=== PATIENT | female | born 2000 | race Two or more races ===

== ENCOUNTER 2019-04-19 19:31 | Emergency (ER) | payer OTHER ==
[2019-04-19] MEDS ORDERED: NORMAL SALINE 1000 ML 1,000 ML IV ONE (20:21)
[2019-04-19] MEDS ORDERED: ACETAMINOPHEN 325 MG TABLET PO ONE (20:21)
--- NOTE | 2019-04-19 20:23 | ER Document Report ---
ED Medical Screen (RME) - General Chief Complaint: Flu Symptoms Stated Complaint: FEVER Time Seen by Provider: 04/19/19 20:17 Notes: HPI: 18-year-old female who is 29 weeks presenting for evaluation of cough and fever over the last 4 days. Patient states she had fever up to 102 today. She denies abdominal pain or dysuria. Does report some decreased appetite over the last 1 to 2 days. Complains of chest pain with coughing. I have greeted and performed a rapid initial assessment of this patient. A comprehensive ED assessment and evaluation of the patient, analysis of test results and completion of the medical decision making process will be conducted by additional ED providers PHYSICAL EXAMINATION: GENERAL: Well-appearing, well-nourished and in mild acute distress. HEAD: Atraumatic, normocephalic. EYES: sclera anicteric, conjunctiva are normal. ENT: Moist mucous membranes. Very mild pharyngeal erythema NECK: Normal range of motion LUNGS: Normal work of breathing, clear to auscultation HEART: 2+ radial pulses bilaterally, tachycardic ABD: limited by positioning for exam in triage. EXTREMITIES: no pitting or edema. No cyanosis. NEUROLOGICAL: No focal neurological deficits. Moves all extremities spontaneous ly and on command. PSYCH: Normal mood, normal affect. SKIN: Warm, Dry, normal turgor, no rashes or lesions noted. TRAVEL OUTSIDE OF THE [place] IN LAST 30 DAYS: No - Related Data Allergies/Adverse Reactions: No Known Allergies Allergy (Unverified 04/19/19 20:15) Physical Exam - Vital signs Vitals: Temp Pulse Resp BP Pulse Ox 100.0 F 134 H 18 102/62 100 04/19/19 19:51 04/19/19 19:51 04/19/19 19:51 04/19/19 19:51 04/19/19 19:51 Course - Vital Signs Vital signs: Temp Pulse Resp BP Pulse Ox 100.0 F 134 H 18 102/62 100 04/19/19 19:51 04/19/19 19:51 04/19/19 19:51 04/19/19 19:51 04/19/19 19:51
--- NOTE | 2019-04-19 20:59 | RADIOLOGY REPORT (SQ) ---
EXAM DESCRIPTION: X-RAY CHEST- TWO VIEWS CLINICAL HISTORY: Fever and cough COMPARISON: None available TECHNIQUE: 2 views of the chest FINDINGS: There are no discrete air space infiltrates, pneumothoraces or pleural effusions. The pulmonary vascularity is normal. There is nonspecific elevation of the right hemidiaphragm. The cardiomediastinal silhouette is normal in size. No suspicious lytic or blastic osseous lesions are identified. IMPRESSION: There are no acute lung parenchymal findings.
[2019-04-19 21:03] LABS: ABSOLUTE EOSINOPHILS # (AUTO) 0.1 10^3/uL (0.0-0.6); ABSOLUTE LYMPHOCYTES (AUTO) 0.7 10^3/uL (0.5-4.7); ABSOLUTE MONOCYTES (AUTO) 0.3 10^3/uL (0.1-1.4); ABSOLUTE NEUT (AUTO) 5.8 10^3/uL (1.7-8.2); BASOPHILS % (AUTO) 0.2 % (0-2); HEMATOCRIT 34.8 % (36.0-47.0); HEMOGLOBIN 11.8 g/dL (12.0-15.5); LYMPHOCYTES % (AUTO) 9.6 % (13-45); MEAN CORPUSCULAR HEMOGLOBIN 30.6 pg (27.0-33.4); MEAN CORPUSCULAR HGB CONC 33.8 g/dL (32.0-36.0); MEAN CORPUSCULAR VOLUME 91 fl (80-97); MONOCYTES % (AUTO) 4.1 % (3-13); PLATELET COUNT 234 10^3/uL (150-450); RED BLOOD COUNT 3.84 10^6/uL (3.72-5.28); RED CELL DISTRIBUTION WIDTH 13.7 % (11.5-14.0); SEGMENTED NEUTROPHILS % (AUTO) 85.1 % (42-78); TOTAL CELLS COUNTED % (AUTO) 100 %; WHITE BLOOD COUNT 6.8 10^3/uL (4.0-10.5)
[2019-04-19 21:09] LABS: APPEARANCE,URINE CLEAR; BILIRUBIN,URINE NEGATIVE (NEGATIVE); COLOR,URINE YELLOW; GLUCOSE, URINE NEGATIVE (NEGATIVE); KETONES,URINE NEGATIVE (NEGATIVE); LEUKOCYTE ESTERASE,URINE NEGATIVE (NEGATIVE); NITRITE,URINE NEGATIVE (NEGATIVE); PROTEIN,URINE NEGATIVE (NEGATIVE); URINE SPECIFIC GRAVITY 1.006; UROBILINOGEN,URINE NEGATIVE mg/dL (<2.0)
[2019-04-19 21:15] LABS: ALKALINE PHOSPHATASE 125 U/L (38-126); ANION GAP 12 (5-19); ASPARTATE AMINO TRANSFERASE 34 U/L (14-36); BILIRUBIN,DIRECT 0.3 mg/dL (0.0-0.4); BILIRUBIN,TOTAL 0.3 mg/dL (0.2-1.3); BLOOD UREA NITROGEN 4 mg/dL (7-20); CALCIUM 9.1 mg/dL (8.4-10.2); CARBON DIOXIDE 22 mmol/L (22-30); CHLORIDE 100 mmol/L (98-107); GLUCOSE 88 mg/dL (75-110); POTASSIUM 3.7 mmol/L (3.6-5.0); TOTAL PROTEIN 7.5 g/dL (6.3-8.2)
[2019-04-19 21:17] LABS: A TYPE INFLUENZA AG NEGATIVE (NEGATIVE); B INFLUENZA AG POSITIVE (NEGATIVE)
[2019-04-19] MEDS ORDERED: OSELTAMIVIR PHOSPHATE 75 MG CAPSULE PO ONE (23:00)
--- NOTE | 2019-04-19 23:40 | ER Document Report ---
Entered by TIN HANDLEY SCRIBE 04/19/19 1907 Acting as scribe for:CLARENCE POP IV, MD ED Flu Like - General Chief Complaint: Flu Symptoms Stated Complaint: FEVER Time Seen by Provider: 04/19/19 20:17 Primary Care Provider: DEVIN MARTINO MD [Primary Care Provider] - Follow up as needed Mode of Arrival: Ambulatory Information source: Patient Notes: This 18 year old female patient G2, P1, approximately x29 weeks presents to the ED today with complaints of flu-like symptoms that began around 1600 x3 days ago. Patient states that she was at work when she felt like she was having an anxiety attack that day, so she went home early. Patient reports cough, fever, chest pain with cough, body aches, chills, sore throat, and a poor appetite for the past x1-2 days. Patient notes that her fever was up to 102 and that her last dose of Tylenol was at 1400 today. Patient denies abdominal pain, dysuria, nausea, vomiting, or diarrhea. TRAVEL OUTSIDE OF THE [place] IN LAST 30 DAYS: No - Related Data Allergies/Adverse Reactions: No Known Allergies Allergy (Unverified 04/19/19 20:15) Past Medical History - Social History Smoking Status: Never Smoker Family History: Reviewed & Not Pertinent Patient has suicidal ideation: No Patient has homicidal ideation: No Review of Systems - Review of Systems Constitutional: See HPI, Chills, Fever EENT: See HPI, Throat pain Cardiovascular: See HPI, Chest pain - reproducible with cough Respiratory: See HPI, Cough Gastrointestinal: See HPI, Poor appetite. denies: Abdominal pain, Diarrhea, Nausea, Vomiting Genitourinary: See HPI. denies: Dysuria Female Genitourinary: See HPI, Last menstrual period - 09/25/2018, - x29 weeks Musculoskeletal: See HPI, Other - Body aches Skin: No symptoms reported Hematologic/Lymphatic: No symptoms reported Neurological/Psychological: No symptoms reported -: Yes All other systems reviewed and negative Physical Exam - Vital signs Vitals: Temp Pulse Resp BP Pulse Ox 100.0 F 134 H 18 102/62 100 04/19/19 19:51 04/19/19 19:51 04/19/19 19:51 04/19/19 19:51 04/19/19 19:51 - General General appearance: Alert - HEENT Head: Normocephalic, Atraumatic Eyes: Normal Pupils: PERRL - Respiratory Respiratory status: No respiratory distress Chest status: Nontender Breath sounds: Normal Chest palpation: Normal - Cardiovascular Rhythm: Regular Heart sounds: Normal auscultation Murmur: No Friction rub: No Gallop: None auscultated - Abdominal Inspection: Other - Uterus size appropriate with . Distension: No distension Bowel sounds: Normal Tenderness: Nontender - Abdomen soft Organomegaly: No organomegaly - Back Back: Normal, Nontender - Extremities General upper extremity: Normal inspection General lower extremity: Normal inspection - Neurological Neuro grossly intact: Yes - Psychological Associated symptoms: Normal affect, Normal mood - Skin Skin Temperature: Warm Skin Moisture: Dry Skin Color: Normal Course - Re-evaluation Re-evalutation: 04/19/19 22:59 Results of ED MSE discussed with patient. All questions were answered prior to discharge. Emergency signs and symptoms, reasons to return to the emergency department discussed with patient. - Vital Signs Vital signs: Temp Pulse Resp BP Pulse Ox 98.3 F 120 H 16 105/55 L 100 04/20/19 00:34 04/20/19 00:34 04/20/19 00:34 04/20/19 00:34 04/20/19 00:34 - Laboratory Result Diagrams: 04/19/19 20:50 04/19/19 20:50 Laboratory results interpreted by me: 04/19/19 04/19/19 20:50 20:50 Hgb 11.8 L Hct 34.8 L Lymph % (Auto) 9.6 L Seg Neutrophils % 85.1 H Sodium 133.5 L BUN 4 L Creatinine 0.47 L Discharge - Discharge Clinical Impression: Influenza B Condition: Good Disposition: HOME, SELF-CARE Instructions: Influenza ([facility]) [id number] Additional Instructions: Return to the Emergency Department without delay if any worse. HOME CARE INSTRUCTIONS & INFORMATION: Thank you for choosing us for your medical needs. We hope you're satisfied with the care you received. After you leave, you must properly care for your problem and, at the same time, observe its progress. Any condition can change. Some illnesses can change rapidly over hours or days. If your condition worsens, return to the Emergency Department or see your physician promptly. ABOUT YOUR X-RAYS AND EKG'S: If you had an EKG or X-rays taken, they have been read by the Emergency Physician. The X-rays and EKG's will also be read by a Radiologist or Aviation Electronics Technician within 24 hours. If discrepancies are noted, you will be notified by telephone. Please be certain the ED has a correct telephone number & address where you can be reached. Also, realize that some fractures or abnormalities do not show up on initial X-rays. If your symptoms continue, see your physician. ABOUT YOUR LABORATORY TEST: If you had laboratory tests, the results have been reviewed by the Emergency Physician. Some test results (for example cultures) may not be available for several days. You will be contacted if any test result shows you need additional treatment. Please be certain the ED has a correct telephone number and address where you can be reached. ABOUT YOUR MEDICATIONS: You will receive instructions on how to take your medicine on the prescription label you receive. Additional information may be provided by the Pharmacy. If you have questions afterwards, call the ED for clarification or further instructions. Some prescribed medications may cause drowsiness. Do not perform tasks such as driving a car or operating machinery without consulting your Pharmacist. If you feel you need a refill of pain medication, your condition will need re-evaluation. Please do not call for a refill of any medication. ABOUT YOUR SIGNATURE: Signature of this document acknowledges to followin. Understanding that you received emergency treatment and that you may be released before al medical problems are known or treated. Please be certain the ED has a correct phone number & address where you can be reached. 2. Acknowledgement that you will arrange for follow-up care as recommended. 3. Authorization for the Emergency Physician to provide information to your follow-up Physician in order to maximize your care. AT ANY TIME, IF YOUR SYMPTOMS CHANGE SIGNIFICANTLY OR WORSEN OR YOU DEVELOP NEW SYMPTOMS, RETURN TO THE EMERGENCY DEPARTMENT IMMEDIATELY FOR RE-EVALUATION. OUR GOAL IS TO PROVIDE EXCELLENT MEDICAL CARE! WE HOPE THAT WE HAVE MET YOUR EXPECTATIONS DURING YOUR EMERGENCY DEPARTMENT VISIT AND THAT YOU FEEL YOU HAVE RECEIVED EXCELLENT CARE! Prescriptions: Oseltamivir Phosphate [Tamiflu 75 mg Capsule] 75 mg PO BID 5 Days #10 capsule Forms: Return to Work Referrals: DEVIN MARTINO MD [Primary Care Provider] - Follow up as needed I personally performed the services described in the documentation, reviewed and edited the documentation which was dictated to the scribe in my presence, and it accurately records my words and actions.
[2019-04-20 00:35] VITALS: BP 105/55
== END 2019-04-20 00:35 | disposition home or self-care (01) ==
LOC: ER 19:31
DX: O26.93 Pregnancy related conditions, unspecified, third trimester (principal); J11.1 Influenza due to unidentified influenza virus with other respiratory manifestations; M79.10 Myalgia, unspecified site; R50.9 Fever, unspecified; Z3A.29 29 weeks gestation of pregnancy
CPT/HCPCS: 99283; 96360; 36415; 87070; 87880; 85025; 80053; 81001; 87804; 71046; J3490; J7030

== ENCOUNTER 2019-12-14 21:03 | Emergency (ER) | payer OTHER ==
--- NOTE | 2019-12-14 21:17 | ER Document Report ---
ED Medical Screen (RME) - General Chief Complaint: General Weakness Stated Complaint: HEAD PRESSURE Time Seen by Provider: 12/14/19 21:09 Primary Care Provider: DEVIN MARTINO MD [Primary Care Provider] - Follow up as needed Mode of Arrival: Ambulatory Information source: Patient Notes: 19-year-old female presented to ED for complaint of headache that is sharp at ti mes that comes and goes. She is also got dizziness body weakness fatigue for the last 2 weeks. She states her last menstrual period was about 2 weeks ago and it was just spotting. She did have a baby about 5 months ago. She was started on amitriptyline 2 weeks ago for insomnia. She states she has no past medical history but she has had her appendix removed. She states she does not smoke drink or use any drugs. Patient is alert oriented respirations regular nonlabored speaking in full sentences. I have greeted and performed a rapid initial assessment of this patient. A comprehensive ED assessment and evaluation of the patient, analysis of test results and completion of medical decision making process will be conducted by an additional ED providers. TRAVEL OUTSIDE OF THE [place] IN LAST 30 DAYS: No - Related Data Allergies/Adverse Reactions: No Known Allergies Allergy (Unverified 04/19/19 20:15) Doctor's Discharge - Discharge Referrals: DEVIN MARTINO MD [Primary Care Provider] - Follow up as needed
[2019-12-14 23:06] LABS: ABSOLUTE EOSINOPHILS # (AUTO) 0.3 10^3/uL (0.0-0.6); ABSOLUTE LYMPHOCYTES (AUTO) 2.8 10^3/uL (0.5-4.7); ABSOLUTE MONOCYTES (AUTO) 0.7 10^3/uL (0.1-1.4); ABSOLUTE NEUT (AUTO) 3.5 10^3/uL (1.7-8.2); BASOPHILS % (AUTO) 0.6 % (0-2); EOSINOPHILS % (AUTO) 4.7 % (0-6); HEMATOCRIT 35.2 % (36.0-47.0); LYMPHOCYTES % (AUTO) 38.3 % (13-45); MEAN CORPUSCULAR HEMOGLOBIN 32.4 pg (27.0-33.4); MEAN CORPUSCULAR HGB CONC 36.8 g/dL (32.0-36.0); MEAN CORPUSCULAR VOLUME 88 fl (80-97); MONOCYTES % (AUTO) 8.8 % (3-13); PLATELET COUNT 342 10^3/uL (150-450); RED CELL DISTRIBUTION WIDTH 13.1 % (11.5-14.0); SEGMENTED NEUTROPHILS % (AUTO) 47.6 % (42-78); TOTAL CELLS COUNTED % (AUTO) 100 %; WHITE BLOOD COUNT 7.4 10^3/uL (4.0-10.5)
[2019-12-14 23:13] LABS: APPEARANCE,URINE CLEAR; BILIRUBIN,URINE NEGATIVE (NEGATIVE); COLOR,URINE YELLOW; GLUCOSE, URINE NEGATIVE (NEGATIVE); KETONES,URINE NEGATIVE (NEGATIVE); LEUKOCYTE ESTERASE,URINE NEGATIVE (NEGATIVE); NITRITE,URINE NEGATIVE (NEGATIVE); PROTEIN,URINE NEGATIVE (NEGATIVE); URINE SPECIFIC GRAVITY 1.026; UROBILINOGEN,URINE NEGATIVE mg/dL (<2.0)
--- NOTE | 2019-12-14 23:19 | ER Document Report ---
ED General - General Chief Complaint: Dizziness Stated Complaint: HEAD PRESSURE Time Seen by Provider: 12/14/19 21:09 Primary Care Provider: DEVIN MARTINO MD [Primary Care Provider] - Follow up as needed Mode of Arrival: Ambulatory Notes: From triage assessment: 19-year-old female presented to ED for complaint of headache that is sharp at times that comes and goes. She is also got dizziness body weakness fatigue for the last 2 weeks. She states her last menstrual period was about 2 weeks ago and it was just spotting. She did have a baby about 5 months ago. She was started on amitriptyline 2 weeks ago for insomnia. She states she has no past medical history but she has had her appendix removed. She states she does not smoke drink or use any drugs. Patient is alert oriented respirations regular nonlabored speaking in full sentences. My note: Patient is a 19-year-old female with a recent reported past medical history of insomnia started on amitriptyline who presents to the emergency department the chief complaint of random intermittent sharp pains in the head. She states this started about a month ago. She states that they are intermittent in nature and random. Denies any provocative or palliative factors. She states she feels pressure in the top occipital scalp and sometimes it expands over the top of the head to the forehead. She states she will also occasionally get random stabbing pains in the head bilaterally in different areas. She reports that she has had episodes associated with nausea and some numbness and tingling around the mouth and face and fingertips. She states that she had her second child about 5 months ago without any complications. She went to see her primary doctor discussed this and they advised she had and wanted to prescribe her medications for that but the patient felt this was unrelated. She did have an appendectomy in the past. States she was concerned of the ongoing nature of the problem so she decided to come for evaluation. Denies any other pain, complaints or concerns at this time. TRAVEL OUTSIDE OF THE [place] IN LAST 30 DAYS: No - Related Data Allergies/Adverse Reactions: No Known Allergies Allergy (Unverified 04/19/19 20:15) Past Medical History - General Information source: Patient - Social History Smoking Status: Never Smoker Chew tobacco use (# tins/day): No Drug Abuse: None Family History: Reviewed & Not Pertinent Review of Systems - Review of Systems Constitutional: denies: Fever EENT: denies: Nose pain Cardiovascular: denies: Orthopnea Respiratory: denies: Sputum Gastrointestinal: denies: Vomiting Genitourinary: denies: Frequency Female Genitourinary: denies: Heavy/abnormal periods Musculoskeletal: denies: Deformity Skin: denies: Change in hair/nails Hematologic/Lymphatic: denies: Blood clots Neurological/Psychological: denies: Weakness Physical Exam - Vital signs Vitals: Temp Pulse Resp BP Pulse Ox 98.2 F 94 16 137/90 H 100 12/14/19 21:11 12/14/19 21:11 12/14/19 21:11 12/14/19 21:11 12/14/19 21:11 - General General appearance: Appears well, Alert In distress: None - HEENT Head: Normocephalic, Atraumatic Eyes: Normal Conjunctiva: Normal Cornea: Normal Extraocular movements intact: Yes Eyelashes: Normal Pupils: PERRL Ears: Normal External canal: Normal Tympanic membrane: Normal Sinus: Normal Nasal: Normal Mouth/Lips: Normal Mucous membranes: Normal Pharynx: Normal Neck: Normal, Supple - Respiratory Respiratory status: No respiratory distress Chest status: Nontender Breath sounds: Normal Chest palpation: Normal - Cardiovascular Rhythm: Regular Heart sounds: Normal auscultation - Abdominal Inspection: Normal Distension: No distension Bowel sounds: Normal Tenderness: Nontender Organomegaly: No organomegaly - Back Back: No: CVA tenderness - Extremities General upper extremity: Normal inspection, Nontender, Normal color, Normal ROM, Normal temperature General lower extremity: Normal inspection, Nontender, Normal color, Normal ROM, Normal temperature, Normal weight bearing. No: Sanjay's sign - Neurological Neuro grossly intact: Yes Cognition: Normal Orientation: AAOx4 Katie Coma Scale Eye Opening: Spontaneous [place] Coma Scale Verbal: Oriented [place] Coma Scale Motor: Obeys Commands Katie Coma Scale Total: 15 Speech: No: Dysarthria, Expressive aphasia, Receptive aphasia Cranial nerves: No: Facial palsy, Gaze palsy, Sensory deficit, Tongue deviation Cerebellar coordination: Heel-morgan - Normal [id number], Finger-nose rhombey - Normal [id number], Rapid alt. movements - Normal rapid alternating hand movements. 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 No: Involuntary movements, Pronator drift, Weakness, Hemiplegia Sensory: Normal - Psychological Associated symptoms: Tearful, Other - Nervous - Skin Skin Temperature: Warm Skin Moisture: Dry Skin Color: Normal Course - Re-evaluation Re-evalutation: 12/15/19 01:56 Work-up largely unremarkable, imaging negative for any acute process per radiologist. Patient is a patient under investigation for COVID-19 though doubt this etiology. We discussed supportive care measures. She will talk to her primary doctor regarding referral. Do suspect a component of anxiety. Discussed antihistamine medication for nerve, anxiety. She will quarantine until she receives a negative COVID-19 result. She will follow-up outpatient for continued care and testing and potential referral to neurology. Advise she return here or any ER immediately with any new, persistent or worsening symptoms. She verbalized understood and agreed. - Vital Signs Vital signs: Temp Pulse Resp BP Pulse Ox 98.2 F 94 16 137/90 H 100 12/14/19 21:11 12/14/19 21:11 12/14/19 21:11 12/14/19 21:11 12/14/19 21:11 - Laboratory Result Diagrams: 12/14/19 22:47 12/14/19 22:47 Laboratory results interpreted by me: 12/14/19 22:47 Hct 35.2 L MCHC 36.8 H Discharge - Discharge Clinical Impression: Anxiety, Person under investigation for COVID-19 Cephalgia Qualifiers: Headache type: unspecified Headache chronicity pattern: episodic headache Int ractability: not intractable Qualified Code(s): R51.9 - Headache, unspecified Condition: Stable Disposition: HOME, SELF-CARE Instructions: Headache ([facility]), Anxiety ([facility]), COVID-19 Guidance for Persons Under Investigation Additional Instructions: You are currently a patient under investigation for COVID-19. Please isolate and quarantine in your home until you are called with a negative result. If it is positive you will be given further guidance by healthcare professional. Please follow-up with your regular doctor for continued outpatient monitoring, management and referral as warranted. Please return here or any ER immediately with any new, persistent or worsening symptoms. Referrals: DEVIN MARTINO MD [Primary Care Provider] - Follow up as needed
[2019-12-14 23:28] LABS: URINE AMPHETAMINES SCREEN NEGATIVE; URINE BARBITURATES SCREEN NEGATIVE; URINE BENZODIAZEPINES SCREEN NEGATIVE; URINE COCAINE SCREEN NEGATIVE; URINE MARIJUANA (THC) SCREEN NEGATIVE; URINE METHADONE SCREEN NEGATIVE; URINE PHENCYCLIDINE SCREEN NEGATIVE
[2019-12-14 23:29] LABS: ALBUMIN 4.5 g/dL (3.5-5.0); ALKALINE PHOSPHATASE 69 U/L (38-126); ANION GAP 12 (5-19); ASPARTATE AMINO TRANSFERASE 25 U/L (14-36); BILIRUBIN,DIRECT 0.3 mg/dL (0.0-0.4); BILIRUBIN,TOTAL 0.3 mg/dL (0.2-1.3); BLOOD UREA NITROGEN 14 mg/dL (7-20); CARBON DIOXIDE 23 mmol/L (22-30); CHLORIDE 106 mmol/L (98-107); GLUCOSE 96 mg/dL (75-110); POTASSIUM 4.1 mmol/L (3.6-5.0); TOTAL PROTEIN 7.5 g/dL (6.3-8.2)
[2019-12-14 23:43] LABS: A TYPE INFLUENZA AG NEGATIVE (NEGATIVE); B INFLUENZA AG NEGATIVE (NEGATIVE)
--- NOTE | 2019-12-14 23:54 | RADIOLOGY REPORT (SQ) ---
CLINICAL INDICATION: #1 SYNCOPE. TECHNIQUE: A single portable AP view was obtained of the chest at 2312 hours. COMPARISON: 2019. FINDINGS: The cardiomediastinal silhouette is normal. The lungs are grossly clear. No evidence of effusion or pneumothorax. The visualized bones are unremarkable. IMPRESSION: No evidence of active intrathoracic disease.
--- NOTE | 2019-12-15 01:00 | RADIOLOGY REPORT (SQ) ---
CT HEAD WITHOUT IV CONTRAST CLINICAL STATEMENT: head pressure/pain with neuropathies This exam was performed according to our departmental dose-optimization program which includes automated exposure control, adjustment of the mA and/or kVp according to patient size and/or use of iterative reconstruction technique where applicable. FINDINGS: No acute intracranial hemorrhage, mass effect or midline shift. No extra-axial fluid collections. Ventricles and subarachnoid spaces are preserved. Mackey-white matter differentiation is preserved. Visualized paranasal sinuses and the mastoid air cells are clear. The skull is intact. IMPRESSION: No acute intracranial hemorrhage.
[2019-12-15 02:38] VITALS: BP 113/71
== END 2019-12-15 02:10 | disposition home or self-care (01) ==
LOC: ER 21:03
DX: R51.9 Headache, unspecified (principal); F41.9 Anxiety disorder, unspecified; R42 Dizziness and giddiness; R53.83 Other fatigue; G47.00 Insomnia, unspecified; R11.0 Nausea; R20.0 Anesthesia of skin; R20.2 Paresthesia of skin; Z20.828 Contact with and (suspected) exposure to other viral communicable diseases
CPT/HCPCS: 99285; 36415; 87086; 84703; 85025; 87635; 87088; 80053; 81001; 80307; 87804; 71045; 70450; C9803